=== PATIENT | female | born 1980 | race Caucasian/White ===

== ENCOUNTER 2018-11-04 21:25 | Emergency (ER) | payer BC ==
[~2018-11-04] VITALS: Ht 160 cm; Wt 77.3 kg
[~2018-11-04 21:25] MED LIST: [UNRECOGNIZED DRUG - OTHER]
[2018-11-04] MEDS ORDERED: LORAZEPAM 2 MG INJ IV ONE (21:30)
--- NOTE | 2018-11-04 21:31 | ERD ---
ER Documentation Chief Complaint Chief Complaint Acute Anxiety HPI 38-year-old female, h/o diabetes mellitus type 1 became extremely upset after in the family brought to the ED via rescue ambulance. Patient anxious, crying and hysterical. Complains of feeling short of breath with palpitations but denies pain. No abdominal pain, nausea or vomiting. ROS All systems reviewed and are negative except as per history of present illness. Medications Home Meds Active Scripts Lorazepam* (Ativan*) 0.5 Mg Tablet, 0.5 MG PO Q8, #8 TAB Prov:ANDREY FERREIRA MD 11/04/18 Reported Medications [humalog,simulin] No Conflict Check 12/13/12 Allergies Allergies: Coded Allergies: Penicillins (Verified Allergy, 12/13/12) PMhx/Soc History of Surgery: No Anesthesia Reaction: No Hx Neurological Disorder: No Hx Respiratory Disorders: No Hx Cardiac Disorders: No Hx Psychiatric Problems: No Hx Miscellaneous Medical Probl: Yes (Diabetes mellitus) Hx Alcohol Use: No Hx Substance Use: No Hx Tobacco Use: No FmHx No family history relevant to presenting complaint Physical Exam Vitals Vital Signs Date Temp Pulse Resp B/P (MAP) Pulse Ox O2 O2 Flow FiO2 Time Delivery Rate 11/04/18 99.0 103 23 215/192 99 21:34 (200) Physical Exam Const: Alert, severe distress, crying Head: Atraumatic Eyes: Normal Conjunctiva ENT: Normal External Ears, Nose and Mouth. Neck: Full range of motion. No meningismus. Resp: Clear to auscultation bilaterally Cardio: Regular rate and rhythm, no murmurs Abd: Soft, non tender, non distended. Normal bowel sounds Skin: No petechiae or rashes Back: No midline or flank tenderness Ext: No cyanosis, or edema Neur: Awake and alert Psych: Anxious. Denies thoughts of hurting herself or others. Results 24 hrs Laboratory Tests Test 11/04/18 21:30 Bedside Glucose 188 mg/dL Current Medications Medications Dose Sig/Mckayla Start Time Status Last (Trade) Ordered Route PRN Stop Time Admin Dose Reason Admin Lorazepam 1 mg ONCE ONCE 11/04/18 DC 11/04/18 (Ativan) IV 21:30 21:55 11/04/18 21:31 Procedures/MDM DOCUMENTS REVIEWED: ED nurse, no prior records EKG: Time: 2132. Sinus rhythm. Ventricular rate 79, normal CA and QRS intervals. No acute ST segment elevation or depression. No axis deviation or ectopy. My Interpretation: Normal EKG REEXAMINATION/REEVALUATION: Time: 22:16. Doing well. Feels much better. Request discharge. [employer]-year-old female, h/o diabetes mellitus type 1 became extremely upset after in the family brought to the ED via rescue ambulance. EKG negative for ischemia or dysrhythmia. Accu-Chek 188 mg/dL mildly elevated but not consistent with DKA. Symptoms resolved with Ativan 1 mg IV. Patient denies depression or suicidal ideations. Stable for discharge with precautionary instructions and outpatient follow-up as counseled. Counseled patient and family regarding diagnostic workup, diagnosis and need for followup. Understands to return to ED if symptoms recur, worsen or any other concerns. Departure Diagnosis: Primary Impression: Anxiety as acute reaction to exceptional stress Additional Impression: Diabetes mellitus type I Diabetes mellitus complication status: without complication Qualified Codes: E10.9 - Type 1 diabetes mellitus without complications Condition: Stable (Improved) ANDREY FERREIRA MD Nov 04, 2018 21:31
[2018-11-04 21:34] VITALS: Ht 160 cm; Wt 77.3 kg
[2018-11-04] MEDS ORDERED: LORA-441 PO (22:12)
[2018-11-04 22:32] VITALS: BP 146/91; PULSE 83; RESP 20
== END 2018-11-04 22:36 | disposition home or self-care (01) ==
LOC: E/R 21:25
DX: F41.1 Generalized anxiety disorder (principal); E10.9 Type 1 diabetes mellitus without complications
CPT/HCPCS: 82962; 93005; 96374; 99284; J2060